=== PATIENT | female | born 1990 | race American Indian/Alaskan Native ===

== ENCOUNTER 2017-06-28 20:33 | Emergency (ER) | payer SELFPAY ==
[2017-06-29] MEDS ORDERED: TYLENOL PO ONE (01:50)
[2017-06-29] MEDS ORDERED: TYLENOL ONE (01:50)
--- NOTE | 2017-06-29 05:19 | Emergency Department Report ---
ED Lower Extremity HPI - General Chief Complaint: Extremity Injury, Lower Stated Complaint: FOOT INJURY Time Seen by Provider: 06/29/17 05:11 Source: patient Mode of arrival: Ambulatory Limitations: No Limitations - History of Present Illness MD Complaint: foot injury -: Sudden, hour(s) (5), This morning Injury: Foot: Right, Toes: Right (3rd) Type of Injury: blunt Place: home Severity scale (0 -10): 6 Worsens With: weight bearing, movement Context: direct blow Associated Symptoms: swelling, unable to bear weight - Related Data Previous Rx's Medication Instructions Recorded Last Taken Type oxyCODONE /ACETAMINOPHEN [Percocet 2 tab PO Q6HR PRN #14 tablet 06/29/17 Unknown Rx 5/325] Allergies Allergy/AdvReac Type Severity Reaction Status Date / Time chamomile flower Allergy Headache Verified 06/28/17 20:39 tomato Allergy Rash Verified 06/28/17 20:39 ED Review of Systems ROS: Stated complaint: FOOT INJURY Other details as noted in HPI Constitutional: denies: chills, fever Eyes: denies: eye pain, eye discharge, vision change ENT: denies: ear pain, throat pain Respiratory: denies: cough, shortness of breath, wheezing Cardiovascular: denies: chest pain, palpitations Endocrine: no symptoms reported Gastrointestinal: denies: abdominal pain, nausea, diarrhea Genitourinary: denies: urgency, dysuria, discharge Musculoskeletal: denies: back pain, joint swelling, arthralgia Skin: denies: rash, lesions Neurological: denies: headache, weakness, paresthesias Psychiatric: denies: anxiety, depression Hematological/Lymphatic: denies: easy bleeding, easy bruising ED Past Medical Hx - Past Medical History Previous Medical History?: No - Surgical History Past Surgical History?: Yes Additional Surgical History: spinal nerve surgery. - Social History Smoking Status: Current Every Day Smoker Substance Use Type: None - Medications Home Medications: Home Medications Medication Instructions Recorded Confirmed Last Taken Type oxyCODONE /ACETAMINOPHEN [Percocet 2 tab PO Q6HR PRN #14 tablet 06/29/17 Unknown Rx 5/325] ED Physical Exam - General Limitations: No Limitations General appearance: alert, in no apparent distress - Head Head exam: Present: atraumatic, normocephalic - Eye Eye exam: Present: normal appearance, EOMI. Absent: scleral icterus, conjunctival injection - ENT ENT exam: Present: mucous membranes moist - Neck Neck exam: Present: normal inspection - Respiratory Respiratory exam: Present: normal lung sounds bilaterally. Absent: respiratory distress, wheezes, rales, rhonchi - Cardiovascular Cardiovascular Exam: Present: regular rate, normal rhythm. Absent: systolic murmur, diastolic murmur, rubs, gallop - GI/Abdominal GI/Abdominal exam: Present: soft, normal bowel sounds - Expanded Lower Extremity Exam Right Hip exam: Present: normal inspection, full ROM Knee exam: Present: normal inspection, full ROM Lower Leg exam: Present: normal inspection, full ROM Ankle exam: Present: normal inspection, full ROM Foot/Toe exam: Present: tenderness, swelling (over right 3,4, and 5 metatarsals , abrasion over 5 metatarsal), abrasion (over 5th metatarsal), erythema - Back Exam Back exam: Present: normal inspection - Neurological Exam Neurological exam: Present: alert, oriented X3 - Psychiatric Psychiatric exam: Present: normal affect, normal mood - Skin Skin exam: Present: warm, dry, intact, normal color. Absent: rash ED Course Vital Signs 06/28/17 06/29/17 20:39 03:08 Temperature 98.7 F 98.1 F Pulse Rate 115 H 75 Respiratory 20 18 Rate Blood Pressure 120/80 92/49 O2 Sat by Pulse 100 100 Oximetry ED Lower Extremity MDM - Radiology Data Radiology results: pending (right foot; fracture over right 3rd metatarsalphalanges joint) Critical care attestation.: If time is entered above; I have spent that time in minutes in the direct care of this critically ill patient, excluding procedure time. ED Disposition Clinical Impression: Fracture of foot bone, right, closed Qualifiers: Encounter type: initial encounter Qualified Code(s): S92.901A - Unspecified fracture of right foot, initial encounter for closed fracture Disposition: TO HOME OR SELFCARE Is pt being admited?: No Does the pt Need Aspirin: No Condition: Stable Instructions: Foot Fracture in Adults (ED) Prescriptions: oxyCODONE /ACETAMINOPHEN [Percocet 5/325] 2 tab PO Q6HR PRN #14 tablet PRN Reason: Pain Referrals: PRIMARY CAREMD [Primary Care Provider] - 3-5 Days YOMI ADDISON MD [Staff Physician] - 3-5 Days Time of Disposition: 05:23
[2017-06-29 06:14] VITALS: BP 118/76
--- NOTE | 2017-06-29 07:37 | XRay Report ---
RIGHT FOOT, 3 views: History: Right foot pain. There is mild soft tissue swelling of the distal foot. No acute osseous findings or joint pathology detected. Normal bone mineralization. IMPRESSION: Mild soft tissue swelling.
== END 2017-06-29 06:14 | disposition home or self-care (01) ==
LOC: ED 20:33
DX: S92.901A Unspecified fracture of right foot, initial encounter for closed fracture (principal); F17.210 Nicotine dependence, cigarettes, uncomplicated; Z91.018 Allergy to other foods; X58.XXXA Exposure to other specified factors, initial encounter; Y93.89 Activity, other specified; Y92.009 Unspecified place in unspecified non-institutional (private) residence as the place of occurrence of the external cause; Y99.8 Other external cause status
CPT/HCPCS: 99283

== ENCOUNTER 2018-08-16 20:06 | Emergency (ER) | payer SELFPAY ==
[2018-08-16] MEDS ORDERED: NACL 0.9% 1000 ML 1,000 ML IV ONE ×2 (20:25→20:32)
[2018-08-16] MEDS ORDERED: ZOFRAN IV ONE (20:32)
[2018-08-16] MEDS ORDERED: MORPHINE IV ONE ×2 (20:32→21:50)
--- NOTE | 2018-08-16 20:34 | Emergency Department Report ---
Blank Doc - Documentation Documentation: This is a 28-year-old female that presents with right-sided bowel pain x1 day, patient stated that she is currently constipated for the past 3 days and bowel pain worsen. Patient also has nausea vomiting. Patient denies any significant past medical history surgeries. Upon examination she does have severe right lower quadrant tenderness. There is a rebound tenderness as well. Labs ordered. CT scan ordered. Patient will receive 1 L normal saline, put on nothing by mouth, morphine and Zofran. Patient signout to provider for further evaluation and treatment.
--- NOTE | 2018-08-16 20:42 | Emergency Department Report ---
ED Abdominal Pain HPI - General Chief Complaint: Abdominal Pain Stated Complaint: ABD PAIN BACK PAIN Time Seen by Provider: 08/16/18 20:31 Source: patient, family Mode of arrival: Wheelchair Limitations: No Limitations - History of Present Illness Initial Comments: This is a 28-year-old female that presents with right-sided bowel pain x1 day, patient stated that she is currently constipated for the past 3 days and bowel pain worsen. Patient also has nausea vomiting. Patient denies any significant past medical history surgeries. Patient said abdominal pain is located all over and is worse when to touch and move. She said it comes in cycle like contractions. She said nausea and vomiting and is continuous. She said this started last night. Patient does smoke marijuana regularly. I asked this question and she answered yes. Denies any vaginal bleeding, urinary burning, frequency or urgency. Denies any fever or chills. Denies any cough or chest pain. She says she smoked marijuana last night and then 8 and now she has severe abdominal pain. She said pain started yesterday but is getting worse today. Last bowel movement was 2-3 days ago but she said she has constipation on and off and she never has this kind of pain before. Pain is 10 out of 10 colicky, crampy and sharp, stabbing. Asked menstrual cycle was 08/09/2018. Denies any back pain. Patient has a history of spinal nerve surgery. Denies drinking any alcohol MD Complaint: abdominal pain, other (nausea and vomiting ) -: Last night Location: diffuse Radiation: none Migration to: no migration Severity: severe Severity scale (0 -10): 10 Quality: cramping, stabbing, aching, sharp Consistency: constant Improves With: nothing Worsens With: movement Context: other (unknown) Associated Symptoms: nausea, vomiting. denies: diarrhea, fever, chills, constipation, dysuria, hematemesis, hematochezia, melena, hematuria, anorexia, syncope Treatments Prior to Arrival: other (none) - Related Data LMP Date: 08/09/18 Previous Rx's Medication Instructions Recorded Last Taken Type oxyCODONE /ACETAMINOPHEN [Percocet 2 tab PO Q6HR PRN #14 tablet 06/29/17 Unknown Rx 5/325] Bisacodyl [Dulcolax] 10 mg PO DAILY 1 Days #2 tab 08/17/18 Unknown Rx Dicyclomine [Bentyl] 20 mg PO Q8H 3 Days #9 tablet 08/17/18 Unknown Rx Famotidine [Pepcid] 20 mg PO BID 15 Days #30 tablet 08/17/18 Unknown Rx Ondansetron [Zofran ODT TAB] 8 mg PO Q8HR PRN #12 tab.rapdis 08/17/18 Unknown Rx Allergies Allergy/AdvReac Type Severity Reaction Status Date / Time chamomile flower Allergy Headache Verified 06/28/17 20:39 tomato Allergy Rash Verified 06/28/17 20:39 ED Review of Systems ROS: Stated complaint: ABD PAIN BACK PAIN Other details as noted in HPI Constitutional: denies: chills, fever Eyes: denies: eye discharge ENT: denies: throat pain, congestion Respiratory: denies: cough, shortness of breath, SOB with exertion, SOB at rest, wheezing Cardiovascular: denies: chest pain, palpitations, dyspnea on exertion, edema, syncope, paroxysmal nocturnal dyspnea Gastrointestinal: abdominal pain, nausea, vomiting, constipation. denies: diarrhea, hematemesis, melena, hematochezia Genitourinary: denies: urgency, dysuria, frequency, hematuria, discharge, abnormal menses Musculoskeletal: denies: back pain, joint swelling, arthralgia, myalgia Skin: denies: rash Neurological: weakness. denies: headache, numbness, paresthesias, confusion, abnormal gait, vertigo ED Past Medical Hx - Past Medical History Previous Medical History?: Yes Additional medical history: Multi-substance abuse - Surgical History Past Surgical History?: Yes Additional Surgical History: spinal nerve surgery. - Family History Family history: hypertension - Social History Smoking Status: Current Every Day Smoker Substance Use Type: Cocaine, Marijuana - Medications Home Medications: Home Medications Medication Instructions Recorded Confirmed Last Taken Type oxyCODONE /ACETAMINOPHEN [Percocet 2 tab PO Q6HR PRN #14 tablet 06/29/17 Unknown Rx 5/325] Bisacodyl [Dulcolax] 10 mg PO DAILY 1 Days #2 tab 08/17/18 Unknown Rx Dicyclomine [Bentyl] 20 mg PO Q8H 3 Days #9 tablet 08/17/18 Unknown Rx Famotidine [Pepcid] 20 mg PO BID 15 Days #30 tablet 08/17/18 Unknown Rx Ondansetron [Zofran ODT TAB] 8 mg PO Q8HR PRN #12 tab.rapdis 08/17/18 Unknown Rx ED Physical Exam - General Limitations: No Limitations General appearance: alert, in distress - Head Head exam: Present: atraumatic, normocephalic, normal inspection, other (normal exam) - Eye Eye exam: Present: normal appearance, PERRL, EOMI Pupils: Present: normal accommodation - ENT ENT exam: Present: normal orophraynx, mucous membranes moist, TM's normal bilaterally, normal external ear exam - Neck Neck exam: Present: normal inspection, full ROM, other (no C-spine tenderness.). Absent: tenderness, lymphadenopathy - Respiratory Respiratory exam: Present: normal lung sounds bilaterally. Absent: respiratory distress, wheezes, rales, rhonchi, stridor, chest wall tenderness, accessory muscle use, decreased breath sounds, prolonged expiratory - Cardiovascular Cardiovascular Exam: Present: regular rate, normal rhythm, normal heart sounds - GI/Abdominal GI/Abdominal exam: Present: soft, tenderness, guarding, rebound, normal bowel sounds. Absent: distended, rigid, organomegaly, mass, bruit, pulsatile mass, hernia - Extremities Exam Extremities exam: Present: normal inspection, full ROM, normal capillary refill, other (No cce. + 2 pulses in all extremities, no neurovascular compromise). Absent: tenderness, pedal edema, joint swelling, calf tenderness - Back Exam Back exam: Present: normal inspection, full ROM. Absent: tenderness, CVA tenderness (R), CVA tenderness (L), muscle spasm, paraspinal tenderness, vertebral tenderness, rash noted - Neurological Exam Neurological exam: Present: alert, oriented X3, normal gait - Psychiatric Psychiatric exam: Present: anxious - Skin Skin exam: Present: warm, dry, intact, normal color. Absent: rash ED Course Vital Signs 08/16/18 08/16/18 08/16/18 20:20 20:47 22:49 Temperature 98 F Pulse Rate 80 67 Respiratory 18 20 12 Rate Blood Pressure 122/86 Blood Pressure 114/72 [Left] O2 Sat by Pulse 100 100 Oximetry 08/17/18 02:15 Temperature 98.3 F Pulse Rate 63 Respiratory 14 Rate Blood Pressure Blood Pressure 124/87 [Left] O2 Sat by Pulse 99 Oximetry Vital Signs 08/16/18 08/16/18 08/16/18 20:20 20:47 22:49 Temperature 98 F Pulse Rate 80 67 Respiratory 18 20 12 Rate Blood Pressure 122/86 Blood Pressure 114/72 [Left] O2 Sat by Pulse 100 100 Oximetry 08/17/18 02:15 Temperature 98.3 F Pulse Rate 63 Respiratory 14 Rate Blood Pressure Blood Pressure 124/87 [Left] O2 Sat by Pulse 99 Oximetry - Reevaluation(s) Reevaluation #1: 08/16/18 20:53 She received morphine 4 mg IV, Zofran 8 mg IV and normal saline IV started. Awaiting CT scan of the abdomen and pelvis with IV contrast. A stat with Reevaluation #2: 08/16/18 21:54 Patient given morphine 4 mg IV, Ativan 1 mg IV due to abdominal pain. Patient en route to CT scan and fluid in urine sample. Reevaluation #3: 08/16/18 23:[address] scan and also ultrasound. While patient was in CT scan they called to say the patient was sleepy and went over her vital signs are stable. She responded appropriately to verbal command. GCS is 15. Still with abdominal pack tenderness with palpation. Reevaluation #4: 08/17/18 00:42 Patient reevaluated and abdominal pain has decreased. She is not having any nausea. She says she feels better CT scan shows no acute findings. Still awaiting ultrasound Reevaluation #5: 08/17/18 02:12 Patient is very sleepy after Ativan and last dose of morphine. She arouses and she is able to ambulate but very unsteady in her feet. It was decided that patient will be observed for a couple hours and her father will pick her up at 6:30 AM. I discuss urine drug screen and other laboratory results patient. Positive for cocaine and marijuana. CT scan and ultrasound without any acute findings. 08/17/18 05:05 Patient is stable and in no acute distress. She is awake. 08/17/18 06:15 Patient is currently up and she says she is feeling a lot better. She is awaiting her family member to pick her up. She is able to ambulate and drinking juice. ED Medical Decision Making - Lab Data Result diagrams: 08/16/18 20:42 08/16/18 20:42 Lab Results 12/26/18 12/26/18 12/26/18 Range/Units 20:42 20:42 20:42 WBC 6.2 (4.5-11.0) K/mm3 RBC 4.45 (3.65-5.03) M/mm3 Hgb 14.4 H (10.1-14.3) gm/dl Hct 42.7 (30.3-42.9) % MCV 96 (79-97) fl MCH 32 (28-32) pg MCHC 34 (30-34) % RDW 13.3 (13.2-15.2) % Plt Count 180 (140-440) K/mm3 Lymph % (Auto) 21.6 (13.4-35.0) % [place] % (Auto) 7.2 (0.0-7.3) % Eos % (Auto) 0.8 (0.0-4.3) % Baso % (Auto) 0.3 (0.0-1.8) % Lymph # 1.3 (1.2-5.4) K/mm3 [place] # 0.4 (0.0-0.8) K/mm3 Eos # 0.1 (0.0-0.4) K/mm3 Baso # 0.0 (0.0-0.1) K/mm3 Seg Neutrophils % 70.1 H (40.0-70.0) % Seg Neutrophils # 4.3 (1.8-7.7) K/mm3 Sodium 133 L (137-145) mmol/L Potassium 3.6 (3.6-5.0) mmol/L Chloride 96.3 L (98-107) mmol/L Carbon Dioxide 26 (22-30) mmol/L Anion Gap 14 mmol/L BUN 6 L (7-17) mg/dL Creatinine 0.7 (0.7-1.2) mg/dL Estimated GFR > 60 ml/min BUN/Creatinine Ratio 9 % Glucose 120 H (65-100) mg/dL Calcium 9.2 (8.4-10.2) mg/dL Total Bilirubin 0.30 (0.1-1.2) mg/dL Direct Bilirubin < 0.2 (0-0.2) mg/dL Indirect Bilirubin 0.1 mg/dL AST 20 (5-40) units/L ALT 15 (7-56) units/L Alkaline Phosphatase 62 (35-129) units/L Total Protein 7.2 (6.3-8.2) g/dL Albumin 4.5 (3.9-5) g/dL Albumin/Globulin Ratio 1.7 % Lipase 24 (13-60) units/L HCG, Qual (Negative) Urine Color (Yellow) Urine Turbidity (Clear) Urine pH (5.0-7.0) Ur Specific Homer (1.003-1.030) Urine Protein (Negative) mg/dL Urine Glucose (UA) (Negative) mg/dL Urine Ketones (Negative) mg/dL Urine Blood (Negative) Urine Nitrite (Negative) Urine Bilirubin (Negative) Urine Urobilinogen (<2.0) mg/dL Ur Leukocyte Esterase (Negative) Urine WBC (Auto) (0.0-6.0) /HPF Urine RBC (Auto) (0.0-6.0) /HPF U Epithel Cells (Auto) (0-13.0) /HPF Urine Opiates Screen Urine Methadone Screen Ur Barbiturates Screen Ur Phencyclidine Scrn Ur Amphetamines Screen U Benzodiazepines Scrn Urine Cocaine Screen U Marijuana (THC) Screen Drugs of Abuse Note 08/16/18 08/16/18 08/16/18 Range/Units 20:42 23:55 23:55 WBC (4.5-11.0) K/mm3 RBC (3.65-5.03) M/mm3 Hgb (10.1-14.3) gm/dl Hct (30.3-42.9) % MCV (79-97) fl MCH (28-32) pg MCHC (30-34) % RDW (13.2-15.2) % Plt Count (140-440) K/mm3 Lymph % (Auto) (13.4-35.0) % [place] % (Auto) (0.0-7.3) % Eos % (Auto) (0.0-4.3) % Baso % (Auto) (0.0-1.8) % Lymph # (1.2-5.4) K/mm3 [place] # (0.0-0.8) K/mm3 Eos # (0.0-0.4) K/mm3 Baso # (0.0-0.1) K/mm3 Seg Neutrophils % (40.0-70.0) % Seg Neutrophils # (1.8-7.7) K/mm3 Sodium (137-145) mmol/L Potassium (3.6-5.0) mmol/L Chloride (98-107) mmol/L Carbon Dioxide (22-30) mmol/L Anion Gap mmol/L BUN (7-17) mg/dL Creatinine (0.7-1.2) mg/dL Estimated GFR ml/min BUN/Creatinine Ratio % Glucose (65-100) mg/dL Calcium (8.4-10.2) mg/dL Total Bilirubin (0.1-1.2) mg/dL Direct Bilirubin (0-0.2) mg/dL Indirect Bilirubin mg/dL AST (5-40) units/L ALT (7-56) units/L Alkaline Phosphatase (35-129) units/L Total Protein (6.3-8.2) g/dL Albumin (3.9-5) g/dL Albumin/Globulin Ratio % Lipase (13-60) units/L HCG, Qual Negative (Negative) Urine Color Straw (Yellow) Urine Turbidity Clear (Clear) Urine pH 7.0 (5.0-7.0) Ur Specific Homer 1.021 (1.003-1.030) Urine Protein <15 mg/dl (Negative) mg/dL Urine Glucose (UA) Neg (Negative) mg/dL Urine Ketones Tr (Negative) mg/dL Urine Blood Neg (Negative) Urine Nitrite Neg (Negative) Urine Bilirubin Neg (Negative) Urine Urobilinogen < 2.0 (<2.0) mg/dL Ur Leukocyte Esterase Sm (Negative) Urine WBC (Auto) 3.0 (0.0-6.0) /HPF Urine RBC (Auto) 1.0 (0.0-6.0) /HPF U Epithel Cells (Auto) < 1.0 (0-13.0) /HPF Urine Opiates Screen Presumptive negative Urine Methadone Screen Presumptive negative Ur Barbiturates Screen Presumptive negative Ur Phencyclidine Scrn Presumptive negative Ur Amphetamines Screen Presumptive negative U Benzodiazepines Scrn Presumptive negative Urine Cocaine Screen Presumptive positive U Marijuana (THC) Screen Presumptive positive Drugs of Abuse Note Disclamer - Radiology Data Radiology results: report reviewed CT scan of abdomen and pelvis with IV contrast and ultrasound pelvic duplex Doppler complete dictated by radiologist and report reviewed by myself. Please see report below Findings [facility] [address] [place] [address] Cat Scan Report Signed Patient: LAURA ARCE MR#: [id number] : 1990 Acct:[id number] Age/Sex: 28 / F ADM Date: 08/16/18 Loc: ED Attending Dr: Ordering Physician: CRISTINA SUN NP Date of Service: 08/16/18 Procedure(s): CT abdomen pelvis w con Accession Number(s): [id number] cc: CRISTINA SUN NP FINAL REPORT PROCEDURE: CT abdomen and pelvis with contrast. TECHNIQUE: Computerized axial tomography of the abdomen and pelvis was performed after the IV injection of iodinated nonionic contrast. HISTORY: Abdominal pain. COMPARISON: No prior studies are available for comparison. FINDINGS: The lung bases are clear. There are no pleural effusions. The heart size is normal. The liver, pancreas and spleen appear normal. The gallbladder is present. There is no biliary dilatation. The adrenal glands are not enlarged. Both kidneys appear normal in size and configuration. The abdominal aorta has a normal caliber. There is no retroperitoneal adenopathy. The unopacified gastrointestinal tract is unremarkable. A normal appendix is visible. The bladder, uterus and adnexal regions are unremarkable. The regional skeleton appears intact. IMPRESSION: Normal studies of the abdomen and pelvis. Transcribed By: MRM Dictated By: THAIS SELLERS MD Electronically Authenticated By: THAIS SELLERS MD Signed Date/Time: 08/16/182305 DD/ 07 TD/TT: 08/16/182307 Findings [facility] [address] [place] [address] Ultrasound Report Signed Patient: LAURA ARCE MR#: [id number] : 1990 Acct:[id number] Age/Sex: 28 / F ADM Date: 08/16/18 Loc: ED Attending Dr: Ordering Physician: BROCK SIERRA Date of Service: 08/16/18 Procedure(s): US pelvis duplex doppler comp Accession Number(s): [id number] cc: BROCK SIERRA FINAL REPORT EXAM: US PELVIS DUPLEX DOPPLER COMP HISTORY: abdominal/pelvic pain and nausea. TECHNIQUE: Transabdominal sonographic evaluation was performed of the female pelvis with and without color Doppler imaging. PRIORS: None. FINDINGS: The uterine myometrium is unremarkable with no focal lesion identified. The endometrial stripe is normal in thickness with no focal lesions identified. Survey of the adnexal regions reveal normal flow to both ovaries. 2.0 cm complex left ovarian cyst. Right ovary normal. No free fluid within the posterior cul-de-sac. Measurements: Uterus: 8.0 x 3.8 cm. Endometrial stripe: 9.3 mm. Right ovary: 2.6 x 1.5 x 2.3 cm. Left ovary: 3.1 x 2.7 x 2.7 cm. IMPRESSION: No evidence of ovarian torsion. 2cm left ovarian complex cyst. Recommend followup ultrasound in 6-8 weeks to confirm resolution. Transcribed By: DAMION Dictated By: NIA HARLEY DO Electronically Authenticated By: NIA HARLEY DO Signed Date/Time: 08/17/18144 DD/ 5 TD/TT: 08/17/18145 - Medical Decision Making 28-year-old female brought to the hospital by he dad. Patient reports nausea a nd vomiting in and abdominal pain that started last night and is getting worse. She says she had another bowel movement in 2 days but she has constipation on and off and it has hurt this bad before. Patient found to have a tender abdomen generalized, with guarding and rebound. No bloating or rigidity. Normal bowel sounds. Patient's lab work shows that she has a stable CBC, CMP stable except for her sodium was mildly decreased, lipase is normal. Urinalysis normal except small moderate ketone. Urine drug screen shows positive cocaine and positive marijuana. Patient had told me that she small marijuana but she did not tell me about the cocaine until after the lab tests. With her about her diagnosis, treatment plan and that she needs to stop using cocaine and marijuana. She voiced understanding and said that she will try. Patient was given normal saline IV fluids 2 L, morphine a total of 6 mg in increments IV, Toradol 30 mg IV, Zofran 8 mg IV. Initially morphine and Zofran did not help and she was still having abdominal pain and seemed to be anxious I gave her 1 mg Ativan IV which made her very sleepy but she remained stable throughout ED course she was observed in the ED and she is awake and alert. Vital signs are stable she is afebrile. She voiced understanding of discharge instruction was given to her. Patient discharged home in stable condition with prescription for Bentyl, Zofran and I told her to use Dulcolax 1 today because she said she has not had a bowel movement in 2 days. Patient also had CT scan of abdomen and pelvis with IV contrast did not show any acute findings. She has pelvic Doppler duplex ultrasound which shows left ovarian complex cyst. I discussed with her that she needs to follow-up with [employer] for follow-up ultrasound and she also needs to follow up with certified social workers in health care and primary care also at [facility]. She voiced understanding and discharged home with her dad in stable condition.. - Differential Diagnosis ectopic , colitis, marijuana-induced , append, bowel OBS. UTI Critical care attestation.: If time is entered above; I have spent that time in minutes in the direct care of this critically ill patient, excluding procedure time. ED Disposition Clinical Impression: Cannabinoid hyperemesis syndrome, Polysubstance abuse, Mild dehydration, Anxiety, Hyponatremia Abdominal pain Qualifiers: Abdominal location: generalized Qualified Code(s): R10.84 - Generalized abdominal pain Disposition: DC-01 TO HOME OR SELFCARE Is pt being admited?: No Does the pt Need Aspirin: No Condition: Stable Instructions: Abdominal Pain (ED), Polysubstance Abuse (ED), Acute Nausea and Vomiting (ED), Hyponatremia (ED) Additional Instructions: Please refrain from using an marijuana and cocaine. This can lead to health problem and subsequently . Cocaine affects your organs especially hard and watermelon inspector use off marijuana can cause this nausea and vomiting with abdominal pain and dehydration. Follow up with primary care doctor tomorrow and if he do not have a primary care doctor follow-up at [facility] Follow up with [facility] call today to schedule an appointment. Try to see between tomorrow and 08/23/2018 Please follow diet over the next 72 hours to include bananas, rice, applesauce and toast to give your stomach chance to rest. Medication as prescribed. Increase her fluid intake to at least 2-3 L of water daily and she can also rotate with Gatorade. Avoid eating spicy, carbonated Cama caffeine and acidic food and/or beverages if Symptoms worsens, return to the emergency room Referrals: PRIMARY MD GEORGE [Primary Care Provider] - 08/18/18 [facility] [Provider Group] - 08/18/18 [facility] [Outside] - 08/18/18 Forms: Accompanied Note, Work/School Release Form(ED)
[2018-08-16 20:52] LABS: Basophils % (Auto) 0.3 % (0.0-1.8); Eosinophils # (Auto) 0.1 K/mm3 (0.0-0.4); Eosinophils % (Auto) 0.8 % (0.0-4.3); Hematocrit 42.7 % (30.3-42.9); Hemoglobin 14.4 gm/dl (10.1-14.3); Lymphocytes # (Auto) 1.3 K/mm3 (1.2-5.4); Lymphocytes % (Auto) 21.6 % (13.4-35.0); Mean Corpuscular HGB Conc 34 % (30-34); Mean Corpuscular Hemoglobin 32 pg (28-32); Mean Corpuscular Volume 96 fl (79-97); Monocytes # (Auto) 0.4 K/mm3 (0.0-0.8); Monocytes % (Auto) 7.2 % (0.0-7.3); Platelet Count 180 K/mm3 (140-440); Red Blood Count 4.45 M/mm3 (3.65-5.03); Red Cell Distribution Width 13.3 % (13.2-15.2)
[2018-08-16 21:08] LABS: Albumin 4.5 g/dL (3.9-5); BUN/Creatinine Ratio 9; Blood Urea Nitrogen 6 mg/dL (7-17); Calcium 9.2 mg/dL (8.4-10.2); Hemolysis Index 102
[2018-08-16 21:10] LABS: Bilirubin,Direct < 0.2 mg/dL (0-0.2)
[2018-08-16 21:11] LABS: Alanine Aminotransferase 15 units/L (7-56)
[2018-08-16] MEDS ORDERED: ZOFRAN ODT PO ONE (21:46)
[2018-08-16] MEDS ORDERED: ATIVAN IV ONE (21:48)
[2018-08-16] MEDS ORDERED: MORPHINE ONE (21:49)
--- NOTE | 2018-08-16 23:06 | Cat Scan Report ---
FINAL REPORT PROCEDURE: CT abdomen and pelvis with contrast. TECHNIQUE: Computerized axial tomography of the abdomen and pelvis was performed after the IV inject ion of iodinated nonionic contrast. HISTORY: Abdominal pain. COMPARISON: No prior studies are available for comparison. FINDINGS: The lung bases are clear. There are no pleural effusions. The heart size is normal. The liver, pancre as and spleen appear normal. The gallbladder is present. There is no biliary dilatation. The adrenal glands are not enlarged. Both kidneys appear normal in size and configuration. The abdominal aorta ravi s a normal caliber. There is no retroperitoneal adenopathy. The unopacified gastrointestinal tract is unremarkable. A normal appendix is visible. The bladder, uterus and adnexal regions are unremarkable . The regional skeleton appears intact. IMPRESSION: Normal studies of the abdomen and pelvis.
[2018-08-17 00:15] LABS: Bilirubin,Urine NEG (Negative); Blood,Urine NEG (Negative); Color,Urine Straw (Yellow); Protein,Urine <15 mg/dL mg/dL (Negative); Urobilinogen,Urine < 2.0 mg/dL (<2.0)
[2018-08-17 00:58] LABS: Amphetamine Screen,Urine PRESUMPTIVE NEGATIVE; Benzodiazepines Screen,Urine PRESUMPTIVE NEGATIVE; Methadone Screen,Urine PRESUMPTIVE NEGATIVE; Opiate Screen,Urine PRESUMPTIVE NEGATIVE
[2018-08-17 01:16] LABS: Cannabinoid Screen,Urine PRESUMPTIVE POSITIVE; Cocaine Screen,Urine PRESUMPTIVE POSITIVE
--- NOTE | 2018-08-17 01:45 | Ultrasound Report ---
FINAL REPORT EXAM: US PELVIS DUPLEX DOPPLER COMP HISTORY: abdominal/pelvic pain and nausea. TECHNIQUE: Transabdominal sonographic evaluation was performed of the female pelvis with and without color Doppler imaging. PRIORS: None. FINDINGS: The uterine myometrium is unremarkable with no focal lesion identified. The endometrial stripe is nor mal in thickness with no focal lesions identified. Survey of the adnexal regions reveal normal flow to both ovaries. 2.0 cm complex left ovarian cyst. Right ovary normal. No free fluid within the poste rior cul-de-sac. Measurements: Uterus: 8.0 x 3.8 cm. Endometrial stripe: 9.3 mm. Right ovary: 2.6 x 1.5 x 2.3 cm. Left ovary: 3.1 x 2.7 x 2.7 cm. IMPRESSION: No evidence of ovarian torsion. 2cm left ovarian complex cyst. Recommend followup ultrasound in 6-8 weeks to confirm resolution.
[2018-08-17] MEDS ORDERED: ZOFRAN ODT PO ONE (02:14)
[2018-08-17] MEDS ORDERED: TORADOL IM ONE (02:14)
[2018-08-17] MEDS ORDERED: TORADOL IV ONE (02:21)
[2018-08-17 05:36] VITALS: BP 123/86
== END 2018-08-17 06:59 | disposition home or self-care (01) ==
LOC: ED 20:06
DX: E86.0 Dehydration (principal); E87.1 Hypo-osmolality and hyponatremia; F41.9 Anxiety disorder, unspecified; F19.10 Other psychoactive substance abuse, uncomplicated; F17.200 Nicotine dependence, unspecified, uncomplicated; F14.10 Cocaine abuse, uncomplicated; Z79.899 Other long term (current) drug therapy
CPT/HCPCS: 36415; 74177; 80048; 80076; 80307; 81001; 83690; 84703; 85025; 93975; 96361; 96374; 96375; 96376; 99284; J1885; J2060; J2270; J2405; J7030; Q9967; Q0162

== ENCOUNTER 2021-07-17 20:40 | Emergency (ER) | payer MEDICAID ==
[2021-07-17] MEDS ORDERED: SODIUM CHLORIDE 0.9% 1000 ML 1,000 ML IV ONE (21:09)
[2021-07-17 21:47] LABS: Alanine Aminotransferase 16 units/L (7-56); Albumin 3.9 g/dL (3.9-5); Blood Urea Nitrogen 8 mg/dL (7-17); Calcium 8.6 mg/dL (8.4-10.2); Hemolysis Index 4
[2021-07-17] MEDS ORDERED: POTASSIUM CHLORIDE ER 20 MEQ TAB PO ONE (21:47)
--- NOTE | 2021-07-17 21:47 | Emergency Department Report ---
ED Psych HPI - General Chief Complaint: Psych Stated Complaint: SUICIDAL ATTEMPT Time Seen by Provider: 07/17/21 20:58 Source: EMS Mode of arrival: Ambulatory - History of Present Illness Initial Comments: 31-year-old female, history of depression, urinary incontinence, presents to ED with intentional overdose. Patient states she wants to , she does not want to live anymore. Patient reports taking 15 Tylenol 500 mg tabs between 6 and 7 PM. She states she vomited and 8 of the 15 pills came up. Patient reports she has a 5-year-old daughter. Patient states she does not feel like she should live if she cannot take care of her daughter properly. Patient states she is currently out of work due to her urinary incontinence, which is currently being worked up by a neurologist. MD Complaint: suicidal ideation - Related Data Home Medications Medication Instructions Recorded Confirmed Last Taken Citalopram [Celexa] 20 mg PO DAILY 07/18/21 07/18/21 Unknown Allergies Allergy/AdvReac Type Severity Reaction Status Date / Time chamomile flower Allergy Headache Verified 07/18/21 10:34 tomato Allergy Rash Verified 07/18/21 10:34 ED Review of Systems ROS: Stated complaint: SUICIDAL ATTEMPT Other details as noted in HPI ED Past Medical Hx - Past Medical History Hx Psychiatric Treatment: Yes (anxiety, depression) Additional medical history: Multi-substance abuse - Surgical History Additional Surgical History: spinal nerve surgery. - Social History Smoking Status: Current Every Day Smoker Substance Use Type: Cocaine, Marijuana - Medications Home Medications: Home Medications Medication Instructions Recorded Confirmed Last Taken Type Citalopram [Celexa] 20 mg PO DAILY 07/18/21 07/18/21 Unknown History ED Physical Exam - General Limitations: No Limitations ED Course Vital Signs 07/17/21 07/17/21 07/17/21 20:59 22:18 22:22 Temperature 98.9 F Pulse Rate 85 69 Respiratory 16 13 Rate Blood Pressure Blood Pressure 105/68 107/73 [Left] O2 Sat by Pulse 99 100 100 Oximetry 07/17/21 07/18/21 07/18/21 23:35 00:31 01:01 Temperature Pulse Rate 71 70 79 Respiratory 12 17 21 Rate Blood Pressure 97/61 105/66 95/60 Blood Pressure [Left] O2 Sat by Pulse 100 99 97 Oximetry 07/18/21 07/18/21 07/18/21 08:45 11:01 15:27 Temperature 98.4 F 98.8 F Pulse Rate 99 H 65 Respiratory 20 18 Rate Blood Pressure Blood Pressure 119/82 100/65 [Left] O2 Sat by Pulse 97 100 100 Oximetry ED Medical Decision Making - Lab Data Result diagrams: 07/17/21 21:13 07/17/21 21:13 - Medical Decision Making 31-year-old female presents to ED following a reported Tylenol overdose. Patient reports she intentionally took 15 Tylenol tabs because she does not want to live anymore. States she vomited up 8 of the 15 pills. Vital signs stable. Labs are unremarkable except for mild hypokalemia. Potassium has been repleted orally. Tylenol levels are normal. Patient has been placed on a 1013. She is now medically clear for mental health evaluation. Will dispo per psych. Critical care attestation.: If time is entered above; I have spent that time in minutes in the direct care of this critically ill patient, excluding procedure time. ED Disposition Clinical Impression: Hypokalemia, Overdose, Suicidal ideations Disposition: [address] [place] [address] Is pt being admited?: No Condition: Stable Referrals: PRIMARY CARE, [Primary Care Provider] - 3-5 Days
[2021-07-17] MEDS ORDERED: ONDANSETRON 4 MG/2 ML INJ IV ONE (21:48)
[2021-07-17 21:53] LABS: BUN/Creatinine Ratio 11; Bilirubin,Direct < 0.2 mg/dL (0-0.2)
[2021-07-17 22:11] LABS: Basophils % (Auto) 0.2 % (0.0-1.8); Eosinophils # (Auto) 0.1 K/mm3 (0.0-0.4); Eosinophils % (Auto) 1.6 % (0.0-4.3); Hematocrit 36.9 % (30.3-42.9); Hemoglobin 12.1 gm/dl (10.1-14.3); Lymphocytes # (Auto) 2.8 K/mm3 (1.2-5.4); Lymphocytes % (Auto) 40.5 % (13.4-35.0); Mean Corpuscular HGB Conc 33 % (30-34); Mean Corpuscular Volume 98 fl (79-97); Monocytes # (Auto) 0.6 K/mm3 (0.0-0.8); Monocytes % (Auto) 9.2 % (0.0-7.3); Platelet Count 139 K/mm3 (140-440); Red Blood Count 3.78 M/mm3 (3.65-5.03); Red Cell Distribution Width 13.5 % (13.2-15.2)
[2021-07-17 22:24] LABS: INR 0.86 (0.87-1.13)
[2021-07-17 22:25] LABS: Partial Thromboplastin Time 29.2 Sec. (24.2-36.6)
[2021-07-18 00:46] LABS: Bilirubin,Urine NEG (Negative); Blood,Urine NEG (Negative); Color,Urine Straw (Yellow); Protein,Urine <15 mg/dL mg/dL (Negative); RBC,Urine < 1.0 /HPF (0.0-6.0); Urobilinogen,Urine < 2.0 mg/dL (<2.0); WBC,Urine < 1.0 /HPF (0.0-6.0)
[2021-07-18 00:58] LABS: Amphetamine Screen,Urine PRESUMPTIVE NEGATIVE; Benzodiazepines Screen,Urine PRESUMPTIVE NEGATIVE; Cannabinoid Screen,Urine PRESUMPTIVE POSITIVE; Cocaine Screen,Urine PRESUMPTIVE NEGATIVE; Methadone Screen,Urine PRESUMPTIVE NEGATIVE; Opiate Screen,Urine PRESUMPTIVE NEGATIVE
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
[2021-07-18] MEDS ORDERED: DIVALPROEX DR 125 MG TAB PO SCH (11:00)
[2021-07-18] MEDS ORDERED: ARIPiprazole 10 MG TAB PO SCH (11:00)
[2021-07-18] MEDS ORDERED: POTASSIUM CHLORIDE ER 20 MEQ TAB PO ONE (11:15)
--- NOTE | 2021-07-18 11:17 | Emergency Department Report ---
Blank Doc - Documentation Documentation: 31-year-old female currently on 1013 for suicide attempt via Tylenol overdose. Mild hypokalemia treated. Vital signs reviewed and within normal range. No events overnight. Covid test ordered. Pending placement
[2021-07-18 15:27] VITALS: BP 100/65
== END 2021-07-18 15:30 ==
LOC: ED 20:40
DX: T39.1X2A Poisoning by 4-Aminophenol derivatives, intentional self-harm, initial encounter (principal); E87.6 Hypokalemia; R45.851 Suicidal ideations; Z98.890 Other specified postprocedural states; F17.200 Nicotine dependence, unspecified, uncomplicated; F12.90 Cannabis use, unspecified, uncomplicated; Z91.018 Allergy to other foods; Z91.048 Other nonmedicinal substance allergy status; Y92.89 Other specified places as the place of occurrence of the external cause
CPT/HCPCS: 36415; 80048; 80076; 80307; 81001; 84703; 85025; 85610; 85730; 93005; 96361; 96374; 99285; J2405; J7030; 80320; Q0162; G0480